=== PATIENT | female | born 1985 | race Caucasian/White ===

== ENCOUNTER 2023-05-24 10:38 | Emergency (ER) | payer SELFPAY ==
[2023-05-24 11:01] VITALS: BP 164/95; PULSE 88; RESP 18; TEMP 36.5; O2SAT 98; BMI 22.6
--- NOTE | 2023-05-24 11:22 | W.ED.DENTAL ---
HPI - Dental/Oral General: Chief complaint: Dental/Oral Stated complaint: tooth pain Time Seen by Provider: 05/24/23 10:50 History of Present Illness: 37-year-old female presents emerged department complaints of left lower jaw pain. She states she has been seen by dentist and is currently taking amoxicillin but she has had continued swelling to the left lower jaw.. She denies fevers chills or night sweats. She states she is scheduled to have the tooth fixed on Friday which is 2 days from today. She states she has had continued pain and swelling. She is able to swallow without difficulty. She states that she feels like the amoxicillin is not working for her as her left lower jaw seems to be much more swollen today than previous. She states her current pain is a 4 out of 10 and throbbing. Review of Systems General: Reports: 10 or more systems reviewed and unremarkable except in HPI and below ENMT: Reports: mouth pain and dental pain Physical Exam Const: COMMON NORMALS: no acute distress, patient oriented x3 and alert HENMT: MOUTH: other (Peritonsillar abscess to the left lower molar); no trismus TEETH & GINGIVA: Yes caries Eye: COMMON NORMALS: Equal, round and reactive pupils present and EOMs intact bilaterally PUPIL: Yes Equal, round and reactive pupils present Neck/C-Spine: COMMON NORMALS: full ROM, no lymphadenopathy, supple and no meningeal signs Resp: COMMON NORMALS: normal respiratory effort, No retractions and clear to auscultation bilaterally AUSCULTATION: clear to auscultation bilaterally Cardio: COMMON NORMALS: regular rate, regular rhythm, S1 normal heart sound present, S2 normal heart sound present and Peripheral pulses 2+ throughout RATE: regular rate RHYTHM: regular rhythm HEART SOUNDS: S1 normal heart sound present and S2 normal heart sound present PERIPHERAL PULSES: Peripheral pulses 2+ throughout GI: COMMON NORMALS: Normal to inspection, nondistended, normoactive bowel sounds present, Soft to palpation and non-tender PALPATION: Yes Soft to palpation : COMMON NORMALS: Yes no CVA tenderness BLADDER/KIDNEY EXAM: Yes no CVA tenderness Back/Pelvis: COMMON NORMALS: no CVA tenderness Extremity: COMMON NORMALS: normal to inspection and full ROM Neuro: COMMON NORMALS: patient oriented x3, CN's II-XII intact bilaterally, moves all extremities and no focal motor deficits SENSORIUM/ORIENTATION: Yes alert MENINGEAL SIGNS: Yes no meningeal signs Psych: COMMON NORMALS: mental status grossly normal and Normal thought process present THOUGHT PROCESS: Normal thought process present Skin: COMMON NORMALS: no rashes or lesions noted GENERAL SKIN EXAM: no rashes or lesions noted Course Vital Signs: Vital signs: Vital Signs Temperature 97.7 F 05/24/23 11:01 Pulse Rate 88 05/24/23 11:01 Respiratory Rate 18 05/24/23 11:01 Blood Pressure 164/95 05/24/23 11:01 Pulse Oximetry 98 05/24/23 11:01 Oxygen Delivery Me thod Room Air 05/24/23 11:01 MDM - Dental/Oral Medical Decision Making Physical exam completed and documented, given the patient's presentation and plan for dental extraction on Friday I will provide her Toradol intramuscular for pain relief and I will advise her to discontinue her current antibiotics and provide her clindamycin. I will discharge her home with Naprosyn for anti-inflammatory properties and pain relief. No radiology studies performed this visit Discharge Plan Discharge Patient Disposition: Home Clinical Impression: Toothache, Dental abscess Condition: Stable Prescriptions: New clindamycin HCl 300 mg capsule 300 mg PO TID 7 Days Qty: 21 0RF Naprosyn 500 mg tablet 500 mg PO BID PRN (Reason: pain) 10 Days Qty: 20 0RF Discharge Orders: Discharge ED (Routine); Ordered 05/24/23 Ordered By: Chuck Shi Discharge Diet: Advance as tolerated Discharge Activity: Resume usual activity Coding Level of Care Code ED Correctional Officer for Angelica Barakat
[2023-05-24] MEDS: ketorolac 60 mg/2 mL INJ IM (11:40)
== END 2023-05-24 11:57 | disposition home or self-care (01) ==
PROVIDERS: Emergency Provider Internal Medicine
DX: K04.7 Periapical abscess without sinus (principal)
CPT/HCPCS: 96372; 99284; J1885